=== PATIENT | female | born 1955 | race Caucasian/White ===

== ENCOUNTER → 2016-02-23 | Outpatient (CLI) | payer BC ==
[~2016-02-23] MED LIST: ATIVAN0.5 MG PO; CIPRO 500MG TA500 MG PO; CLEOCIN HCL300 MG PO; CLINDAMYCIN HC300 MG PO; FERROUS SU325 MG/TAB PO; FLUOXETINE20 M1 PO; FLUOXETINE20 MG PO; FOLIC ACID 40400 MCG PO; LEVAQUIN 5500 MG/TAB PO; LEVAQUIN 750MG750 M1 PO; LEVOTHYROXIN0.137 MG PO; LEVOTHYROXINE PO; LEVOXYL0.175 MG PO; MULTIVITAMIN FO1 CAP PO; NAPROSYN500 MG PO; NORCO 325 MG-51 TAB PO; NORCO PO; VITAMIN C BUFF500 MG PO; ZOLPIDEM10 MG PO
== END ==
LOC: MC.RAD 14:13
DX: Z12.31 Encounter for screening mammogram for malignant neoplasm of breast (principal)

== ENCOUNTER → 2018-09-02 | Outpatient (CLI) | payer BC | LOC: MC.RAD 13:56 | DX: Z12.31 Encounter for screening mammogram for malignant neoplasm of breast (principal) ==

== ENCOUNTER → 2019-09-03 | Outpatient (CLI) | payer BC | LOC: MC.RAD 14:46 | DX: Z12.31 Encounter for screening mammogram for malignant neoplasm of breast (principal); Z98.890 Other specified postprocedural states; Z98.82 Breast implant status ==

== ENCOUNTER → 2020-09-29 | Outpatient (CLI) | payer BC | LOC: MC.RAD 11:12 | DX: Z12.31 Encounter for screening mammogram for malignant neoplasm of breast (principal) ==

== ENCOUNTER → 2021-10-25 | Outpatient (CLI) | payer BC | LOC: MC.RAD 11:09 | DX: Z12.31 Encounter for screening mammogram for malignant neoplasm of breast (principal) ==